=== PATIENT | female | born 1955 | race African-American/Black ===

== ENCOUNTER → 2017-01-06 | Outpatient (CLI) | payer OTHER ==
[2017-01-06 09:44] LABS: ABSOLUTE NEUTROPHILS 3.2 thou/uL (1.4-8.2); BASOPHILS 1.2 % (0.0-2.0); EOSINOPHILS 1.6 % (0.0-3.0); HEMOGLOBIN 13.6 gm/dL (12.0-15.0); MCH 30.4 pg (26.0-34.0); MCV 89.5 fL (80.0-100.0); MONOCYTES 7.5 % (1.0-8.0); PLATELET COUNT 305 thou/uL (150-400); POLYS 60.7 % (36.0-66.0); RBC 4.47 mil/uL (4.20-5.00); RDW 13.5 % (10.5-14.5); WBC 5.2 thou/uL (4.0-11.0)
[2017-01-06 09:50] LABS: MANUAL DIFF NO
[2017-01-06 09:59] LABS: URINE BILIRUBIN NEGATIVE (Negative); URINE BLOOD NEGATIVE (Negative); URINE COLOR YELLOW; URINE GLUCOSE-RANDOM* NEGATIVE (Negative); URINE KETONES NEGATIVE (Negative); URINE NITRITE NEGATIVE (Negative); URINE PROTEIN (DIPSTICK) TRACE (Negative); URINE SPECIFIC GRAVITY >= 1.030 (1.003-1.035); URINE UROBILINOGEN 0.2 E.U./dl (0.2-1.0)
[2017-01-06 10:01] LABS: ALBUMIN 4.2 g/dL (3.4-5.0); CALCIUM 9.7 mg/dL (8.5-10.1); POTASSIUM 3.8 mmol/L (3.5-5.1); TOTAL BILIRUBIN 0.5 mg/dL (<0.1-1.0); TOTAL PROTEIN 8.3 g/dL (6.4-8.2)
[2017-01-06 10:39] LABS: SQUAMOUS >10 Many /LPF (0-3)
[2017-01-06 10:40] LABS: CASTS None Seen /LPF (None Seen); CRYSTALS None Seen /LPF (None Seen)
[2017-01-06 10:41] LABS: BACTERIA >30 Many /HPF (None Seen); URINE RBC None Seen /HPF (0-2)
== END ==
LOC: LAB 08:59
PROVIDERS: Family Medicine
DX: R11.0 Nausea (principal)

== ENCOUNTER → 2019-03-17 | Outpatient (CLI) | payer OTHER | LOC: RAD 15:14 | DX: M25.551 Pain in right hip (principal); M25.552 Pain in left hip; Z88.0 Allergy status to penicillin ==

== ENCOUNTER 2021-05-29 09:02 | Inpatient (IN) | payer OTHER ==
[~2021-05-29] VITALS: Ht 165.1 cm; Wt 113.4 kg
[2021-05-29 09:06] VITALS: BP 172/85
[2021-05-29] MEDS ORDERED: BUPROPION XL300 MG PO (09:25)
[2021-05-29] MEDS ORDERED: LISINOPRIL-HCT1 EAC2 PO (09:25)
[2021-05-29 09:51] LABS: ABSOLUTE NEUTROPHILS 4.4 thou/uL (1.4-8.2); BASOPHILS 0.9 % (0.0-2.0); EOSINOPHILS 1.9 % (0.0-3.0); HEMATOCRIT 37.8 % (37.0-47.0); HEMOGLOBIN 12.3 gm/dL (12.0-15.0); LYMPHOCYTES 22.1 % (24.0-44.0); MCH 29.5 pg (26.0-34.0); MCHC 32.6 g/dL (28.0-37.0); MCV 90.4 fL (80.0-100.0); MONOCYTES 9.7 % (1.0-8.0); PLATELET COUNT 301 thou/uL (150-400); POLYS 65.4 % (36.0-66.0); RBC 4.18 mil/uL (4.20-5.00); RDW 13.1 % (10.5-14.5); WBC 6.7 thou/uL (4.0-11.0)
[2021-05-29 10:04] LABS: CALCIUM 9.6 mg/dL (8.5-10.1); CREATININE 1.1 mg/dL (0.6-1.0); POTASSIUM 3.8 mmol/L (3.5-5.1)
[2021-05-29 10:13] LABS: ALBUMIN 3.9 g/dL (3.4-5.0); TOTAL BILIRUBIN 0.5 mg/dL (0.2-1.0); TOTAL PROTEIN 7.8 g/dL (6.4-8.2)
[2021-05-29 12:36] VITALS: BP 132/69
--- NOTE | 2021-05-29 12:56 | EKG ---
[address] [address] ELECTROCARDIOGRAM REPORT Name: KENNEYHILDA Room #: 170-2 ADM IN M.R.#: [id number] Admission: 05/29/21 Attend Phys: Aubrey Keith MD Discharge: Date of : 59 Report #: [id number] [facility] ED Test Date: 2021-05-29 Test Time: 09:19:17 Pat Name: HILDA MOULTON Department: Room: 170 Gender: F [place]: MEREDITH : 1955 Requested By: Shasha Thompson Order Number: [id number] MD: Korey Elliott Measurements Intervals [place] Rate: 75 P: 61 ME: 163 QRS: 51 QRSD: 99 T: 14 QT: 348 QTc: 389 Interpretive Statements Sinus arrhythmia Probable left atrial enlargement Low voltage, precordial leads Baseline wander in lead(s) V4 No previous ECG available for comparison Electronically Signed On 05-29-2021 12:56:04 CDT by Korey Elliott [email or web address] <ELECTRONICALLY SIGNED> By: Korey Elliott MD, [facility] 05/29/21 1256 8 8 Korey Elliott MD, FACC /EPI
[2021-05-29 13:16] VITALS: BP 158/71
[2021-05-29 13:54] LABS: FOLIC ACID 16.5 ng/mL (8.6-58.9)
[2021-05-30 05:13] LABS: ABSOLUTE NEUTROPHILS 2.9 thou/uL (1.4-8.2); BASOPHILS 1.1 % (0.0-2.0); EOSINOPHILS 3.1 % (0.0-3.0); HEMATOCRIT 32.3 % (37.0-47.0); HEMOGLOBIN 10.7 gm/dL (12.0-15.0); LYMPHOCYTES 32.4 % (24.0-44.0); MCH 30.3 pg (26.0-34.0); MCHC 33.1 g/dL (28.0-37.0); MCV 91.3 fL (80.0-100.0); MONOCYTES 11.6 % (1.0-8.0); PLATELET COUNT 268 thou/uL (150-400); POLYS 51.8 % (36.0-66.0); RBC 3.53 mil/uL (4.20-5.00); RDW 13.4 % (10.5-14.5); WBC 5.5 thou/uL (4.0-11.0)
[2021-05-30 05:39] LABS: CALCIUM 8.7 mg/dL (8.5-10.1); CREATININE 1.3 mg/dL (0.6-1.0); MAGNESIUM 1.6 mg/dL (1.8-2.4); POTASSIUM 3.9 mmol/L (3.5-5.1)
[2021-05-30 05:41] LABS: CHOLESTEROL 151 mg/dL (<200); HDL CHOLESTEROL 67 mg/dL (>40); LDL CHOLESTEROL 71 mg/dL (<100); TC:HDL 2.3 Ratio (Not establshd); TRIGLYCERIDE 67 mg/dL (<150); VLDL 13 mg/dL (<40)
[2021-05-30 05:47] LABS: SERUM ASSESSMENT Clear
--- NOTE | 2021-05-30 11:09 | NUR ---
ASSUMED CARE OF PT
[2021-05-30 14:59] VITALS: BP 154/61
[2021-05-30 15:06] VITALS: BP 152/69
[2021-05-30 20:06] LABS: GLYCOHEMOGLOBIN (HGB A1C) 5.7 % (4.8-5.6)
--- NOTE | 2021-05-31 09:12 | NUR ---
PT ORDER RECEIVED. Pt DISCHARGED FROM HOSPITAL BEFORE PT EVALUATION COULD BE COMPLETED.
== END 2021-05-30 15:05 | disposition home or self-care (01) | DRG 552 ==
LOC: ER 09:02 → EROBS 10:52
PROVIDERS: Emergency Medicine; Nurse Practitioner; ADMIT Internal Medicine; ATTEND Internal Medicine
DX: M48.02 Spinal stenosis, cervical region (principal); G45.9 Transient cerebral ischemic attack, unspecified; Z68.41 Body mass index [BMI] 40.0-44.9, adult; I16.0 Hypertensive urgency; I10 Essential (primary) hypertension; E66.9 Obesity, unspecified; F41.9 Anxiety disorder, unspecified; Z20.822 Contact with and (suspected) exposure to COVID-19; Z88.0 Allergy status to penicillin